=== PATIENT | female | born 1960 | race Caucasian/White ===

== ENCOUNTER 2023-08-29 07:00 | Outpatient (NON) | payer OTHER, SELFPAY | END 2023-08-29 07:01 | disposition home or self-care (01) | PROVIDERS: PCP Internal Medicine; Visit Provider Internal Medicine Gastroenterology | DX: R19.7 Diarrhea, unspecified (principal) | CPT/HCPCS: 88305 ==

== ENCOUNTER 2023-08-29 07:46 | Day surgery (SDC) | payer OTHER, SELFPAY ==
[2023-07-09 13:52] VITALS: BMI 32.5
[2023-08-29 08:58] VITALS: BP 163/83; PULSE 69; RESP 18; TEMP 37.1; O2SAT 100; BMI 31.6
[2023-08-29] MEDS: LACTATED RINGERS 1,000 ML 150 ML IV CONT (09:03)
--- NOTE | 2023-08-29 09:25 | WPDANESEPPF ---
Anes - Initial Pre Proc Eval Procedure: Operation Date: 08/29/23 10:00 Proposed Procedures p Diagnostic Colonoscopy - Too Reynoso MD Date/Time: 08/29/23 09:25 Surgeon: Too Reynoso MD Pre Op Diagnosis: Diarrhea, unspecified Patient Data Age: 63 Gender: F Height: 1.55 m Weight: 76.05 kg Last Vital Signs Temp 37.1 C 08/29/23 08:58 Pulse 69 08/29/23 08:58 Resp 18 08/29/23 08:58 BP 163/83 H 08/29/23 08:58 Pulse Ox 100 08/29/23 08:58 O2 Del Method Room Air 08/29/23 08:58 Allergies Allergy/AdvReac Type Severity Reaction Status Date / Time prochlorperazine AdvReac Unknown Verified 08/23/23 08:42 [From Compazine] Home Medications Medication Instructions Recorded Confirmed Type amlodipine 5 mg tablet 5 mg PO DAILY 07/23/23 08/29/23 History cholestyramine-aspartame 4 gram 1 ea PO BID 07/23/23 08/29/23 History oral powder (Cholestyramine Light) ergocalciferol (vitamin D2) 1,250 1,250 mcg PO DIRECTED 07/23/23 08/29/23 History mcg (50,000 unit) capsule ezetimibe 10 mg tablet 10 mg PO DAILY 07/23/23 08/29/23 History montelukast 10 mg tablet 10 mg PO DAILY 07/23/23 08/29/23 History omeprazole 20 mg capsule,delayed 20 mg PO DAILY 07/23/23 08/29/23 History release telmisartan 20 mg tablet 20 mg PO DIRECTED 07/23/23 08/29/23 History Patient hx anesthesia problems: none Family hx anesthesia problems: none Results Review: All pre-operative results and documents have been reviewed as part of the pre-operative evaluation. [facility] Past Medical History Medical History (Updated 08/29/23 @ 09:26 by Cullen Arredondo MD) HTN (hypertension) Hyperlipidemia Surgical History Surgical History (Updated 08/29/23 @ 09:26 by Cullen Arredondo MD) History of cholecystectomy Social History Social History Smoking status: Never smoker Substance use type: does not use Living arrangements: with family Tiago Craven Final PreProcedure Day of Procedure 08/29/23 09:25 Patient weight: overweight Heart: regular rate and rhythm Lungs: clear to auscultation Airway: Mallampati scale class II Neurological: alert and oriented Last oral intake: >/= 8 hours ASA classification: II Emergent: no Anesthetic plan: proceed Anesthesia type and monitoring: general GIVS and standard monitoring Results Review: All pre-operative results and documents have been reviewed as part of the pre-operative evaluation. Informed Consent: The patient's anesthetic plan and its attendant risks and benefits were discussed with the patient/family/POA. Questions were solicited and answers provided to the satisfaction of the patient/family/POA.
--- NOTE | 2023-08-29 09:35 | PM.HPGS ---
History of Present Illness History of Present Illness Consent: Risks, benefits, and alternatives have been discussed and questions answered. Patient agrees to proceed with procedure. Chief complaint: Diarrhea, unspecified Narrative: Carol Reynolds is a 63 year old female referred for colonoscopy. Patient reports having had loose stools for at least 15 years since cholecystectomy was performed. Recently started on Questran. She feels some improvement. She also notices rather vague low abdominal discomfort that is worse with sitting on the toilet. Pain increases with urinating and or bowel movements. Patient denies any change in her weight. She has had no bleeding. Family history noncontributory. It has been many years since colonoscopy in screening is advised. She reports having a negative Cologuard test perhaps 7 years ago. Review of Systems Review of Systems: Review of Systems is noncontributory. [facility] Past Medical History Medical History (Updated 08/29/23 @ 09:38 by Too Reynoso MD) HTN (hypertension) Hyperlipidemia Surgical History Surgical History (Updated 08/29/23 @ 09:26 by Cullen Arredondo MD) History of cholecystectomy Social History Social History Smoking status: Never smoker Substance use type: does not use Living arrangements: with family Meds Home Medications and Allergies Home Medications Medication Instructions Recorded Confirmed Type amlodipine 5 mg tablet 5 mg PO DAILY 07/23/23 08/29/23 History cholestyramine-aspartame 4 gram 1 ea PO BID 07/23/23 08/29/23 History oral powder (Cholestyramine Light) ergocalciferol (vitamin D2) 1,250 1,250 mcg PO DIRECTED 07/23/23 08/29/23 History mcg (50,000 unit) capsule ezetimibe 10 mg tablet 10 mg PO DAILY 07/23/23 08/29/23 History montelukast 10 mg tablet 10 mg PO DAILY 07/23/23 08/29/23 History omeprazole 20 mg capsule,delayed 20 mg PO DAILY 07/23/23 08/29/23 History release telmisartan 20 mg tablet 20 mg PO DIRECTED 07/23/23 08/29/23 History Allergies Allergy/AdvReac Type Severity Reaction Status Date / Time prochlorperazine AdvReac Unknown Verified 08/23/23 08:42 [From Compazine] Vital Signs Vital Signs - 24 hr 08/29/23 08:58 Temperature 98.8 F Pulse Rate 69 Respiratory Rate 18 Blood Pressure 163/83 H Pulse Oximetry 100 Oxygen Delivery Room Air Exam Narrative: Physical exam reveals patient to be alert. Vital signs stable. HEENT exam is unremarkable. Patient is anicteric. Lungs are clear to auscultation and percussion. Heart is without murmur or extra sounds. Abdomen bowel sounds are present soft nontender with no organomegaly. Digital external rectal exam is normal. Assessment and Plan Assessment and plan (1) Diarrhea: Code(s): R19.7 - Diarrhea, unspecified Status: Acute Assessment and Plan: Patient with chronic loose stools may be associated with post cholecystectomy. Agree with cholestyramine trial. Also may benefit from fiber supplementation. (2) Abdominal pain: Code(s): R10.9 - Unspecified abdominal pain Status: Acute Assessment and Plan: Lower abdominal pain of sent uncertain nature. Not always associated with bowel movements. Sometimes just present without regard to bowel habits. Often associated with urinating. Etiology unclear. Colonoscopy may be beneficial further recommendations may be given after endoscopy. (3) Screen for colon cancer: Code(s): Z12.11 - Encounter for screening for malignant neoplasm of colon Status: Acute Assessment and Plan: Patient needs colon screening for colon cancer. endoscopy planned today.
[2023-08-29] MEDS: SIMETHICONE ORAL SUSPENSION 20 MG/0.3 ML 30 ML BOTTLE 0.6 ML IRRIGATION (09:52)
[2023-08-29 10:00] VITALS: BP 128/65; PULSE 71; RESP 18; O2SAT 100
[2023-08-29 10:10] VITALS: BP 145/70; PULSE 67; RESP 16; O2SAT 100
[2023-08-29 10:20] VITALS: BP 146/72; PULSE 67; RESP 16; O2SAT 100
--- NOTE | 2023-08-29 10:21 | WPDANESPN ---
Anes - Prog Note Post-Op Date/Time: 08/29/23 10:21 Cardiovascular status: normal Respiratory status: normal Airway patency: baseline Mental status: baseline Post-Op hydration status: normal Vital Signs: Last Vital Signs Temp 37.1 C 08/29/23 08:58 Pulse 71 08/29/23 10:00 Resp 18 08/29/23 10:00 BP 128/65 08/29/23 10:00 Pulse Ox 100 08/29/23 10:00 O2 Del Method Room Air 08/29/23 10:00 Pain Score (VAS): 0/10 I/O: Intake & Output 08/28/23 08/29/23 08/29/23 23:59 07:59 15:59 Intake Total 50 Balance 50 Patient Feedback: Patient satisfied with anesthetic care.
== END 2023-08-29 10:30 | disposition home or self-care (01) ==
PROVIDERS: PCP Internal Medicine; Visit Provider Internal Medicine Gastroenterology
PROC: 0DJD8ZZ Inspection of Lower Intestinal Tract, Via Natural or Artificial Opening Endoscopic (ICD-10-PCS; CPT 45378; principal; 2023-08-29 10:00)
DX: R19.7 Diarrhea, unspecified (principal); K64.8 Other hemorrhoids; Z12.11 Encounter for screening for malignant neoplasm of colon
CPT/HCPCS: 45380

== ENCOUNTER 2023-09-05 13:06 | Outpatient (CLI) | payer OTHER, SELFPAY ==
--- NOTE | ~2023-09-05 | US_ITS ---
EXAMINATION: US pelvic complete w TV DATE: 09/05/2023 13:45 INDICATION: Pelvic and perineal pain TECHNIQUE: Multiple transabdominal and endovaginal sonographic images of the pelvis were obtained. COMPARISON: None. FINDINGS: The uterus measures 6.6 x 3.3 x 2.4 cm. The endometrial complex measures 5 mm in thickness. 7 mm nab othian cyst at the cervix. There are few small echogenic and shadowing calcifications along the junct ional zone likely related to reported prior ablation. The bilateral ovaries are not visualized. There is no free fluid in the pelvis. IMPRESSION: 1. Endometrial complex thickness of 5 mm is at the upper limits of normal with scattered calcificatio n along the junctional zone likely related to prior ablation. Reviewed, dictated and finalized at location A. IMPRESSION: 1. Endometrial complex thickness of 5 mm is at the upper limits of normal with scattered calcification along the junctional zone likely related to prior ablat ion.
== END 2023-09-05 13:07 ==
PROVIDERS: PCP Internal Medicine; Visit Provider Student in an Organized Health Care Education/Training Program
DX: R10.2 Pelvic and perineal pain (principal)
CPT/HCPCS: 76830; 76856